=== PATIENT | female | born 1995 | race Caucasian/White ===

== ENCOUNTER 2024-11-10 16:41 | Emergency (ER) | payer MEDICAID, SELFPAY ==
[2024-11-10] VITALS (9 sets, daily range): BP systolic 111–139; BP diastolic 71–98; PULSE 86–116; RESP 15–37; TEMP 36.6–36.8; O2SAT 95–99; BMI 24.1
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
--- NOTE | 2024-11-10 16:52 | CT_ITS ---
PROCEDURE INFORMATION: Exam: CT Cervical Spine Without Contrast Exam date and time: 11/10/2024 5:51 PM Age: 29 years old Clinical indication: Injury or trauma; Additional info: Trauma, critical injury suspected TECHNIQUE: Imaging protocol: Computed tomography of the cervical spine without contrast. Radiation optimization: All CT scans at this facility use at least one of these dose optimization techniques: automated exposure control; mA and/or kV adjustment per patient size (includes targeted exams where dose is matched to clinical indication); or iterative reconstruction. COMPARISON: CT FACIAL BONES WO CON 11/10/2024 5:48 PM FINDINGS: Bones: Vertebral body height and AP alignment is preserved. No acute cervical spine fracture. No definite high-grade central canal stenosis within limitations of technique. Lungs: Lung apices are normal. Pleural spaces: No visible pneumothorax. Soft tissues: Unremarkable. IMPRESSION: No acute cervical spine fracture.
--- NOTE | 2024-11-10 16:52 | CT_ITS ---
PROCEDURE INFORMATION: Exam: CTA Neck With Contrast Exam date and time: 11/10/2024 5:52 PM Age: 29 years old Clinical indication: Injury or trauma; Additional info: Trauma, critical injury suspected TECHNIQUE: Imaging protocol: Computed tomographic angiography of the neck with contrast. Exam focused on the cervical segments of the vasculature. 3D rendering (Not supervised by radiologist): MIP and/or 3D reconstructed images were created by the technologist. Radiation optimization: All CT scans at this facility use at least one of these dose optimization techniques: automated exposure control; mA and/or kV adjustment per patient size (includes targeted exams where dose is matched to clinical indication); or iterative reconstruction. Contrast material: ISO 370; Contrast volume: 80 ml; Contrast route: INTRAVENOUS (IV); COMPARISON: CT CERVICAL SPINE WO CON 11/10/2024 5:51 PM FINDINGS: Right common carotid artery: No stenosis. No dissection or occlusion. Right internal carotid artery: No stenosis of the extracranial segment. No dissection or occlusion. Right external carotid artery: No occlusion or stenosis of the origin. Left common carotid artery: No stenosis. No dissection or occlusion. Left internal carotid artery: No stenosis of the extracranial segment. No dissection or occlusion. Left external carotid artery: No occlusion or stenosis of the origin. Right vertebral artery: Right vertebral artery is dominant. Left vertebral artery: No stenosis. No dissection or occlusion. Soft tissues: Normal. No significant soft tissue swelling. Bones/joints: No acute fracture. Lungs: Nodule at the superior segment of the left lower lobe measures 8 mm. IMPRESSION: 1. No acute vascular injury. 2. 8 mm nodule at the superior segment of the left lower lobe. If the patient does not have known cancer, follow up should be based on clinical information because of the low risk of cancer in this age group. (Reference: Naren) REFERENCES: 1. Naren H, et al. Guidelines for Management of Incidental Pulmonary Nodules Detected on CT Images: From the Fleischner Society 2017. Radiology. 2017;284(1):228-243. 2. NASCET CRITERIA. The degree of stenosis in the cervical segment of the internal carotid artery is based on NASCET criteria. Normal is no stenosis. Mild is less than 50% stenosis. Moderate is 50-69% stenosis. Severe is 70% to 99% stenosis. Total occlusion is no detectable patent lumen.
--- NOTE | 2024-11-10 16:52 | CT_ITS ---
PROCEDURE INFORMATION: Exam: CTA Head With Contrast, Arteriography Exam date and time: 11/10/2024 5:52 PM Age: 29 years old Clinical indication: Injury or trauma; Additional info: Trauma, critical injury suspected TECHNIQUE: Imaging protocol: Computed tomographic angiography of the head with contrast. Exam focused on the arteries. 3D rendering (Not supervised by radiologist): MIP and/or 3D reconstructed images were created by the technologist. Radiation optimization: All CT scans at this facility use at least one of these dose optimization techniques: automated exposure control; mA and/or kV adjustment per patient size (includes targeted exams where dose is matched to clinical indication); or iterative reconstruction. Contrast material: ISO 370; Contrast volume: 80 ml; Contrast route: INTRAVENOUS (IV); COMPARISON: CT HEAD/BRAIN WO CON 11/10/2024 5:46 PM FINDINGS: ANTERIOR CIRCULATION: Right internal carotid artery: Intracranial segment is patent with no significant stenosis. No aneurysm. Right middle cerebral artery: No occlusion or significant stenosis. No aneurysm. Right anterior cerebral artery: No occlusion or significant stenosis. No aneurysm. Left internal carotid artery: Intracranial segment is patent with no significant stenosis. No aneurysm. Left middle cerebral artery: No occlusion or significant stenosis. No aneurysm. Left anterior cerebral artery: No occlusion or significant stenosis. No aneurysm. POSTERIOR CIRCULATION: Right vertebral artery: Right vertebral artery is dominant. Left vertebral artery: No occlusion or significant stenosis. No aneurysm. Basilar artery: No occlusion or significant stenosis. No aneurysm. Right posterior cerebral artery: No occlusion or significant stenosis. No aneurysm. Left posterior cerebral artery: No occlusion or significant stenosis. No aneurysm. IMPRESSION: No significant vascular pathology.
--- NOTE | 2024-11-10 16:52 | CT_ITS ---
PROCEDURE INFORMATION: Exam: CT Maxillofacial Without Contrast Exam date and time: 11/10/2024 5:48 PM Age: 29 years old Clinical indication: Injury or trauma; Additional info: Trauma, critical injury suspected TECHNIQUE: Imaging protocol: Computed tomography of the face without contrast. Radiation optimization: All CT scans at this facility use at least one of these dose optimization techniques: automated exposure control; mA and/or kV adjustment per patient size (includes targeted exams where dose is matched to clinical indication); or iterative reconstruction. COMPARISON: CT HEAD/BRAIN WO CON 11/10/2024 5:46 PM FINDINGS: Paranasal sinuses: Hemorrhage within the right maxillary sinus. There is mild depressed fracture involving the anterior wall of the right maxillary sinus. Mild ethmoid sinus disease. Orbital cavities: Mild right orbital hemorrhage at the right inferior extraconal space. Bones: There is displaced fracture of the left mandibular ramus. Nondisplaced bilateral mandibular body fractures. There is transection of the alveolar ridge on the left. Mildly displaced right orbital floor fracture. Soft tissues: Right facial soft tissue injury. IMPRESSION: 1. Mildly depressed fracture involving the right orbital floor. 2. Mildly depressed fracture involving the anterior wall of the right maxillary sinus. 3. Displaced right mandibular ramus fracture. 4. Nondisplaced bilateral mandibular body fractures. Transection of the alveolar ridge on the left. 5. Mild right orbital hemorrhage at the inferior extraconal space. 6. Additional findings as above.
--- NOTE | 2024-11-10 16:52 | CT_ITS ---
PROCEDURE INFORMATION: Exam: CT Head Without Contrast Exam date and time: 11/10/2024 5:46 PM Age: 29 years old Clinical indication: Injury or trauma; Additional info: Trauma, critical injury suspected TECHNIQUE: Imaging protocol: Computed tomography of the head without contrast. Radiation optimization: All CT scans at this facility use at least one of these dose optimization techniques: automated exposure control; mA and/or kV adjustment per patient size (includes targeted exams where dose is matched to clinical indication); or iterative reconstruction. COMPARISON: No relevant prior studies available. FINDINGS: Brain: Normal. No hemorrhage. Unremarkable white matter. No mass effect. Cerebral ventricles: No ventriculomegaly. Paranasal sinuses: There is fluid within the right maxillary sinus. Depressed fracture involving the anterior wall of the right maxillary sinus. There is displaced right orbital floor fracture. Mastoid air cells: Visualized mastoid air cells are well aerated. Bones: Right pre maxillary soft tissue injury. No acute calvarial fracture. Soft tissues: Unremarkable. IMPRESSION: 1. No acute intracranial abnormality. 2. Please refer to report for CT of the facial bones for additional details.
--- NOTE | 2024-11-10 16:53 | XR_ITS ---
PROCEDURE INFORMATION: Exam: XR Chest Exam date and time: 11/10/2024 5:56 PM Age: 29 years old Clinical indication: Injury or trauma; Blunt trauma (contusions or hematomas) TECHNIQUE: Imaging protocol: Radiologic exam of the chest. Views: 1 view. COMPARISON: CT ANGIO NECK 11/10/2024 5:52 PM FINDINGS: Lungs: Unremarkable. No consolidation. Pleural spaces: Unremarkable. No pleural effusion. No pneumothorax. Heart/Mediastinum: Unremarkable. No cardiomegaly. Bones/joints: Unremarkable. IMPRESSION: No acute findings.
[2024-11-10] MEDS: MORPHINE 4MG/ML SYRINGE 4 MG IV (17:05)
[2024-11-10] MEDS: LACTATED RINGERS 1000ML 1,000 ML 999 ML IV (17:06)
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
[2024-11-10 17:17] LABS: Basophils % 0.3 % (0.1-2.0); Eosinophils # 0.1 Kmm3 (0.0-0.4); Eosinophils % 1.2 % (0.1-12.0); Hematocrit 37.6 % (37.0-47.0); Lymphocytes # 1.3 K/mm3 (0.7-4.5); Lymphocytes % 21.1 % (10-50); Mean Corpuscular HGB Conc 34.6 g/dL (31.8-35.4); Mean Corpuscular Hemoglobin 36.5 pg (27.0-31.2); Mean Corpuscular Volume 105.6 fl (81-99); Mean Platelet Volume 10.8 fl (7.4-10.4); Monocytes # 0.4 K/mm3 (0.1-1.0); Monocytes % 7.2 % (1.7-9.3); Neutrophils # 4.3 K/mm3 (1.8-7.8); Nucleated Red Blood Cells # 0 10^3/uL; Nucleated Red Blood Cells % 0 %; Platelet Count 240 K/mm3 (142-424); Red Blood Count 3.56 M/mm3 (4.20-5.40); Red Cell Distribution Width 15.6 % (11.5-17.5); Red Cell Distribution Width-SD 61.7 fL; White Blood Count 6.1 K/mm3 (4.8-10.8)
[2024-11-10 17:19] LABS: Chloride 109 mmol/L (98-107); HCG Qualitative, Serum Negative (Negative); Potassium 3.5 mmoL/L (3.5-5.1); Sodium 140 mmol/L (136-145)
[2024-11-10 17:22] LABS: Alanine Aminotransferase 40 U/L (12-78); Albumin/Globulin Ratio 1.4 (1.1-1.8); Alkaline Phosphatase 100 U/L (38-126); Anion Gap 10.5 mEq/L (5-15); Aspartate Amino Transferase 87 U/L (14-36); Bilirubin,Total 0.5 mg/dl (0.2-1.3); Blood Urea Nitrogen 8 mg/dl (7-17); Calcium 8.6 mg/dl (8.4-10.2); Carbon Dioxide 24 mmol/L (22.0-30.0); Creatinine Clearance Estimated 144 mL/min (50-200); Estimated Glomerular Filt Rate 118 ml/min (>60); GFR (African American) 143 ML/MIN (>60); Globulin 2.8 g/dL (1.3-3.2); Glucose 98 mg/dl (74-100); Total Protein,Serum 6.8 g/dl (6.3-8.2)
--- NOTE | 2024-11-10 17:23 | PC.NURSE ---
[employer] officer here in ER speaking with patient
[2024-11-10 17:25] LABS: Activated Partial Thrombo Time 25.5 seconds (22.8-30.6); INR 1.01 (0.9-1.1); Prothrombin Time 11.3 seconds (10.1-12.5)
--- NOTE | 2024-11-10 17:26 | PC.NURSE ---
[facility] at bedside for exam and photo evidence collection with this nurse at bedside
[2024-11-10 17:30] LABS: Lactic Acid 1.4 mmol/L (0.7-2.1)
[2024-11-10 17:34] LABS: Lipase 100 U/L (23-300)
[2024-11-10] MEDS: ONDANSETRON 4MG/2ML VIAL 4 MG IV (17:36)
--- NOTE | 2024-11-10 17:41 | PC.NURSE ---
called radiology that the preg test was negative and pt is ready for CTs
[2024-11-10] MEDS: SODIUM CHLORIDE 0.9% 10ML SYR (RAD ONLY) 10 ML IV (17:53)
[2024-11-10] MEDS: 0.9 % SODIUM CHLORIDE 50 ML VIAL IV (17:53)
[2024-11-10] MEDS: IOPAMIDOL-370 (76%);100ML BOTTLE 80 ML IV (17:53)
[2024-11-10 18:05] LABS: POC Glucose,Bedside 82 (70-110)
[2024-11-10 18:53] LABS: Microscopic, Urine URINE MICROSCOPIC (MICROSCOPIC)
[2024-11-10 18:55] LABS: Appearance,Urine CLEAR (Clear); Bilirubin,Urine Negative (Negative); Blood, Urine Negative (Negative); Color,Urine YELLOW (Yellow); Glucose,Urine (UA) Negative (Negative); Ketones,Urine Negative (Negative); Leukocyte Esterase,Urine Negative (Negative); Nitrate,Urine POSITIVE (Negative); PH,Urine 6.5 (5.0-8.5); Protein,Urine Negative (Negative); Specific Gravity, Urine 1.015 (1.005-1.030); Urobilinogen,Urine 0.2 EU/dl (0.2)
--- NOTE | 2024-11-10 19:31 | PC.NURSE ---
193- called for pending patient transfer
[2024-11-10 19:42] LABS: Bacteria,Urine 4+ /lpf; Squamous Epithelial Cell,Urine Occasional #/hpf (0-5)
--- NOTE | 2024-11-10 19:53 | PC.NURSE ---
1948- report given to Nu BAEZA at ED
[2024-11-10] MEDS: TETRACAINE 0.5% OPTH SOL 15ML OP (20:15)
--- NOTE | 2024-11-14 15:53 | PC.NURSE ---
X CALLED IN FOR PT TO [facility]. NO NUMBER AVAILABLE IN CHART. CONTACTED PHARMACY FOR NUMBER. [phone]. NOT A WORKING NUMBER. ATTEMPTED TO REACH MEDICAL RECORDS AT , NO NUMBER AVAILABLE
== END 2024-11-10 20:39 | disposition short-term general hospital (02) ==
PROVIDERS: Emergency Provider Student in an Organized Health Care Education/Training Program
DX: S09.93XA Unspecified injury of face, initial encounter (principal); S00.11XA Contusion of right eyelid and periocular area, initial encounter; T71.193A Asphyxiation due to mechanical threat to breathing due to other causes, assault, initial encounter; Y04.8XXA Assault by other bodily force, initial encounter
CPT/HCPCS: 70450; 70486; 70496; 70498; 71045; 72125; 80053; 81001; 82962; 83605; 83690; 84703; 85025; 85610; 85730; 87086; 87088; 87186; 96361; 96374; 96375; 99285; J2270; J2405; J7120; Q9967